=== PATIENT | female | born 1995 | race Caucasian/White ===

== ENCOUNTER 2020-04-07 07:31 | Inpatient (IN) ==
[2020-04-07] MEDS ORDERED: OXYTOCIN 30 UNITS/500 ML BAG IV PRN ×3 (08:11→23:17)
[2020-04-07 08:40] LABS: Hematocrit (blood only) 35.1 % (37-47); Hemoglobin 11.2 g/dL (12.0-16.0); Mean Corpuscular Hemoglobin 26.8 pg (25-34); Mean Platelet Volume 9.5 fL (7.4-10.4); Platelet Count 222 K/uL (130-400); RDW Standard Deviation 46.2 fL (36.4-46.3); Red Blood Count 4.18 M/uL (4.2-5.4); White Blood Count 10.44 K/uL (4.8-10.8)
[2020-04-07 08:43] LABS: Mean Corpuscular Hgb Conc 31.9 g/dL (32-36)
[2020-04-07] MEDS ORDERED: CALCIUM CARBONATE 500 MG CHEWABLE TAB ONE (09:13)
[2020-04-07] MEDS: LACTATED RINGER'S 1,000 ML IV PRN ×3 (09:22→20:54)
[2020-04-07] MEDS ORDERED: CALCIUM CARBONATE 500 MG CHEWABLE TAB PO PRN (09:29)
--- NOTE | 2020-04-07 09:44 | History & Physical Report ---
Date of Service April 07, 2020 Assessment & Plan (1) Encounter for induction of labor: Cervical balloon catheter to be placed by Dr. Brunson for cervical dilation and softening augmentation. Proceed with induction of labor per Pitocin augmentation protocol. Plan for unmedicated , but pt may also consider epidural. Will continue to monitor patient. Expect . (2) : see above History of Present Illness Primary Care Provider: Steven Gabriel Alfredo Priyanka Monte is a 24 y/o female currently at 41w1d EGA with an LALY 03/30/20 as determined by LMP who is here for IOL. Pt is planning for an unmedicated ; she reports that she did not have a good experience with the epidural during her first delivery (12/25/18) as it "didn't take" and that she would like to try the current delivery w/o epidural. However, she notes that she is not completely against the epidural if needed. Her was complicated by obesity and IUGR (monitored with US through but showed no longer IUGR on 01/14/20). Last BM this morning. - contractions; + movement; minimal blood tinged fluid loss after manual exam yesterday; no significant fluid loss; - bloody show Had regular appointments with OB. Blood type: O+ Antibody screen: neg H.7 (01/16/20) Hct: 35% (01/16/20) Rubella: immune (07/19/20) VDRL/RPR: nonreactive (07/19/20) Gonorrhea: not detected (07/19/20) Chlamydia: not detected (07/19/20) HIV: neg (07/19/20) HbSAg: neg (07/19/20) GBS: neg (03/03/20) panorama performed, low risk, male fetus Allergies Allergy/AdvReac Type Severity Reaction Status Date / Time No Known Allergies Allergy Verified 03/31/20 15:43 Home Medications Home Medications Medication Instructions Recorded Confirmed Type vit-iron fum-folic ac 1 tab PO DAILY 03/31/20 04/07/20 History [ Vitamin] Patient History Medical History Encounter for anatomic survey No pertinent past medical history Surgical History H/O hand surgery H/O ovarian cystectomy Family History Mother Mitral valve prolapse Asthma Miscarriage Father Hypertension Alcoholic Aunt Miscarriage Social History Smoking Status: Never smoker Second Hand Exposure: No; Do You Dip or Chew Tobacco: No; Tobacco Cessation Education Requested by Patient: No Hx Alcohol Use: No Hx Substance Use: No Preferred Language: Portuguese Beliefs That Will Affect Care: None marital status: Single marital status details: Justus Romano (24) [phone] Current Living Situation: Alone Current Living Situation Comment: Lives with 15 month old daughter current occupational status: employed current occupation: [employer] Other Information That Helps Us Care for You: No Feels Safe at Home: Yes Safety Concerns: Feels Safe At This Time Review of Systems Denies fever or chills. Denies shortness of breath, cough, or congestion. Denies chest pain. Positive heart burn, worsening. Denies breast pain. Denies constipation. Denies dysuria or hematuria. Denies leg pain or leg swelling. Denies headache or changes in vision. Physical Exam Physical Exam: General: Alert, oriented. No acute distress. Cardiac: Regular rate and rhythm, no murmurs/rubs/gallops. Respiratory: Clear to auscultation bilaterally a/p, no wheezes/rales/rhonchi. No increased work of breathing. Symmetrical chest rise. No respiratory distress. Abdomen: Gravid; full term. Pelvic: Dilation 2cm; Effacement 50; Station -[address] Brunson. Lower Extremities: No lower extremity edema or swelling. No deep calf pain. Danish's negative bilaterally Results & Data Vital Signs (Past 12 Hours) Vital Signs Temp Pulse Resp BP 04/07/20 08:02 36.5 C 85 20 119/66 04/07/20 07:39 85 119/66 Supervising Physician Co-Signing Physician Notes Resident Physician Supervision Note: I was present with Dr. Taylor during the history and exam. I discussed the case with the resident and agree with the findings and plan as documented in the note. Any exceptions or clarifications are listed here: Admit for IOL. Bone balloon placed without difficulty. Start pitocin. Documented By: Angela Brunson, DO
[2020-04-07] MEDS ORDERED: BUTORPHANOL TARTRATE 1 MG/ML VIAL IV PRN (13:37)
[2020-04-07] MEDS ORDERED: BUTORPHANOL TARTRATE 1 MG/ML VIAL ONE (13:48)
[2020-04-07] MEDS ORDERED: ePHEDrine sulfate 50 MG/ML AMP ONE (17:27)
[2020-04-07] MEDS ORDERED: fentaNYL citrate 100 MCG/2 ML VIAL ONE (17:27)
[2020-04-07] MEDS ORDERED: BUPIVACAINE 0.25% 30 ML VIAL ONE (17:27)
[2020-04-07] MEDS ORDERED: fentaNYL 2MCG/ML ROPIV 1.25MG/ML 100 ML BAG EPI ONE (17:28)
--- NOTE | 2020-04-07 17:42 | Anesthesiology Consultation ---
Date of Service April 07, 2020 Assessment & Plan Chart Review Chart Review: Acceptable Risk for Surgery, Patient NOT seen in Pre Admission Testing and Acceptable Risk for Labor Epidural Consults Requested none ASA ASA3 Proposed Anesthesia Anesthesia Type: Labor Epidural and CSE History Height/Weight Height: 5 ft 6 in Weight: 119.918 kg Allergies Allergy/AdvReac Type Severity Reaction Status Date / Time No Known Allergies Allergy Verified 03/31/20 15:43 Medications Home Medications Medication Instructions Recorded Confirmed Last Taken vit-iron fum-folic ac 1 tab PO DAILY 03/31/20 04/07/20 04/06/20 13:00 [ Vitamin] Active Medications Generic Name Dose Route Start Last Admin Trade Name Freq PRN Reason Stop Dose Admin Butorphanol Tartrate 1 mg 04/07/20 13:37 04/07/20 16:46 Stadol IV 05/07/20 13:36 1 mg Q2H PRN Administration Pain Lactated Ringer's 1,000 mls @ 125 mls/hr 04/07/20 08:11 04/07/20 16:48 Lr IV 04/09/20 08:10 125 mls/hr .Q8H PRN Administration L&D Protocol Protocol Oxytocin 30 units in 500 mls @ 7 mls/hr 04/07/20 08:16 04/07/20 15:24 Pitocin IV 04/09/20 08:15 0.42 units/hr .Q24H PRN 7 mls/hr Labor Induction/Augmentation Titration Protocol 0.42 UNITS/HR Past Medical History Medical History Encounter for anatomic survey No pertinent past medical history Exercise / Class Metabolic Activity II 4-5 Yardwork/Stairs/Walk up hill Past Family History Family History Mother Mitral valve prolapse Asthma Miscarriage Father Hypertension Alcoholic Aunt Miscarriage Past Surgical History Surgical History H/O hand surgery H/O ovarian cystectomy Past Anesthesia History No Hx of Anesthesia Complications and No Family Hx of Anesthesia Complications History of PONV No Hx of PONV and No Hx of Motion Sickness Social History Smoking Status: Never smoker Do You Dip or Chew Tobacco: No Hx Alcohol Use: No Hx Substance Use: No substance use type: does not use Physical Exam Vital Signs Last Vital Signs Temp 36.8 C 04/07/20 16:51 Pulse 65 04/07/20 17:36 Resp 20 04/07/20 16:51 BP 122/69 04/07/20 16:51 Pulse Ox 99 04/07/20 17:36 Testing Laboratory Results 04/07/20 08:27
[2020-04-07] MEDS ORDERED: PROMETHAZINE HCL 25 MG in SODIUM CHLORIDE 0.9% 50 ML IV PRN (18:21)
[2020-04-07] MEDS ORDERED: ePHEDrine sulfate 50 MG/ML AMP IV PRN (18:21)
[2020-04-07] MEDS ORDERED: ONDANSETRON INJ 2 MG/ML 2 ML VIAL IV PRN (18:21)
[2020-04-07] MEDS ORDERED: NALOXONE HCL 1 MG in SODIUM CHLORIDE 0.9% 1000ML 1,000 ML IV PRN (18:21)
[2020-04-07] MEDS ORDERED: fentaNYL 2MCG/ML ROPIV 1.25MG/ML 100 ML BAG EPI PRN (18:21)
[2020-04-07] MEDS ORDERED: DiphenhydrAMINE HCL 50 MG/ML VIAL IV PRN (18:21)
[2020-04-07] MEDS ORDERED: NALOXONE HCL 0.4 MG/1 ML VIAL/CARP IV PRN (18:21)
--- NOTE | 2020-04-07 21:29 | Labor Progress Brief Note ---
Date of Service April 07, 2020 Subjective AROM earlier this afternoon for scant clear fluid. Patient has been progressing with increasing contractions throughout the afternoon and evening. Now with epidural, comfortable. FHT Cat 1 Potter Q 2 SVE 8-9/100/-1. Moulding of head. Large anterior lip of cervix. Continue labor, anticipate . Assessment & Plan Admission and Anticipated Discharge Date Admission Date: April 07, 2020 Results & Data ([facility]) Vital Signs (Past 12 Hours) Vital Signs Temp Pulse Resp BP Pulse Ox 04/07/20 21:21 80 100 04/07/20 21:17 67 140/67 04/07/20 21:16 78 100 04/07/20 21:11 69 100 04/07/20 21:06 70 100 04/07/20 21:02 66 148/69 H 04/07/20 21:01 74 100 04/07/20 20:59 36.6 C 18 04/07/20 20:56 71 100 04/07/20 20:51 72 100 04/07/20 20:47 64 150/70 H 04/07/20 20:46 64 98 04/07/20 20:41 68 99 04/07/20 20:36 66 100 04/07/20 20:31 65 145/68 H 99 04/07/20 20:26 65 99 04/07/20 20:21 66 100 04/07/20 20:17 65 144/67 H 04/07/20 20:16 65 100 04/07/20 20:11 66 100 04/07/20 20:06 66 100 04/07/20 20:02 65 108/67 04/07/20 20:01 65 100 04/07/20 19:56 76 100 04/07/20 19:51 69 100 04/07/20 19:46 65 129/62 100 04/07/20 19:41 70 100 04/07/20 19:36 85 100 04/07/20 19:33 64 126/69 04/07/20 19:31 72 100 04/07/20 19:26 67 100 04/07/20 19:21 65 100 04/07/20 19:18 65 135/71 04/07/20 19:16 64 99 04/07/20 19:11 64 100 04/07/20 19:06 36.6 C 65 18 100 04/07/20 19:01 73 135/65 99 04/07/20 18:56 62 126/60 98 04/07/20 18:51 68 123/59 L 98 04/07/20 18:46 65 98 04/07/20 18:45 63 124/63 04/07/20 18:41 66 122/59 L 98 04/07/20 18:37 63 114/56 L 04/07/20 18:36 64 99 04/07/20 18:31 66 99 04/07/20 18:29 79 107/50 L 04/07/20 18:26 90 98 04/07/20 18:25 71 104/55 L 04/07/20 18:23 87 98/56 L 04/07/20 18:21 100 H 99/53 L 100 04/07/20 18:19 88 108/55 L 04/07/20 18:17 86 130/60 04/07/20 18:16 91 H 97 04/07/20 18:11 77 100 04/07/20 18:06 77 100 04/07/20 18:01 77 100 04/07/20 17:56 73 100 04/07/20 17:52 64 137/75 04/07/20 17:51 67 100 04/07/20 17:46 60 100 04/07/20 17:41 59 L 100 04/07/20 17:40 67 93 04/07/20 17:36 65 99 04/07/20 16:51 36.8 C 71 20 122/69 04/07/20 16:20 60 143/71 H 04/07/20 15:15 36.6 C 60 16 132/79 04/07/20 15:09 68 136/82 04/07/20 14:14 69 128/76 04/07/20 14:05 37.1 C 20 04/07/20 14:04 66 128/74 04/07/20 11:15 63 130/71 04/07/20 10:56 72 121/59 L 04/07/20 10:43 68 129/72 04/07/20 10:27 72 16 127/73 04/07/20 10:11 70 20 121/78 04/07/20 09:57 65 20 128/78 04/07/20 09:42 72 125/70 Coding Level of Care Code None
[2020-04-07] MEDS ORDERED: ACETAMINOPHEN 325 MG TAB ONE (23:15)
[2020-04-07] MEDS ORDERED: HYDROCORTISONE ACETATE 25 MG SUPP PR PRN (23:17)
[2020-04-07] MEDS ORDERED: BENZOCAINE 20% AER SPR 82.5 GM CAN EXT PRN (23:17)
[2020-04-07] MEDS ORDERED: SUPERCREAM 0.870% 15 GM JAR EXT PRN (23:17)
[2020-04-07] MEDS ORDERED: bisacodyL 10 MG SUPP PR PRN (23:17)
[2020-04-07] MEDS ORDERED: DIPHTHERIA/TETANUS/PERTUSSIS 0.5 ML SYR/VIAL IM ONE (23:17)
[2020-04-07] MEDS ORDERED: OXYCODONE/ACETAMINOPHEN 5mg/325mg TAB PO PRN (23:17)
[2020-04-07] MEDS ORDERED: ACETAMINOPHEN 325 MG TAB PO PRN (23:17)
--- NOTE | 2020-04-07 23:17 | Delivery Summary ---
Vaginal Delivery Summary Date of Service April 07, 2020 Vaginal Delivery Summary Vaginal Delivery Summary: Pre-delivery diagnoses: 24yo @ 41 09/03, IOL for postdates, obesity, mild pyelectasis Post-delivery diagnoses: same, left vaginal pedunculated inclusion cyst 1x2cm Procedure: spontaneous vaginal delivery Surgeon: Angela Brunson DO Complications: none Findings: Viable male . Apgars: 8/9. Weight pending, please see nursery records. Estimated blood loss: 300ml Description of delivery: The patient progressed to complete with epidural anesthesia. She then began to push. She spontaneously vaginally delivered a viable from the cephalic presentation. The head delivered in ANNMARIE position. Nuchal cord x 1, easily reduced. The anterior shoulder delivered, followed by the posterior shoulder, followed by the body. The baby was placed on mother's abdomen and the cord was immediately doubly clamped and cut. Baby handed off to nursery team for resuscitation. A segment was retained for cord gases. Cord blood was obtained. The placenta was delivered spontaneously intact with a 3-vessel cord. The uterus and vagina were swept of clots and debris. IV pitocin was given. The uterus became firm. The cervix, vagina, and perineum were inspected and no lacerations were noted. Excellent hemostasis was observed. There was a new finding (visualized on first exam today prior to delivery) of a 1 x 2cm pedunculated inclusion cyst on the left vaginal wall, approx 3cm from introitus. I offered removal after delivery, patient declined, as it does not bother her. The mother and baby are recovering in stable and good condition in the room. Sponge and instrument counts were correct x 2. Angela Brunson DO [facility] [place] Vaginal Delivery Charge Vaginal Delivery Codes: 27170 global code for the antepartum, delivery, and post-
--- NOTE | 2020-04-07 23:28 | Anesthesia Procedure Note ---
Date of Service April 07, 2020 Anesthesia Post Epidural Note Vital Signs Vital Signs: Temp Pulse Resp BP Pulse Ox 37.5 C 90 18 116/59 L 99 04/07/20 22:41 04/07/20 23:16 04/07/20 22:41 04/07/20 23:16 04/07/20 23:16 Notes Mental Status: alert / awake / arousable Nausea / Vomiting: adequately controlled Pain: adequately controlled Airway Patency, RR, SpO2: stable & adequate BP & HR: stable & adequate Hydration State: stable & adequate Neuraxial Anesthesia: was administered and sensory block is resolving Anesthetic Complications: no major complications apparent Epidural: Removed without complications and With tip intact
[2020-04-07 23:40] LABS: Base Excess Cord Arterial Bld -2.7 mEq/L (-9-1.8); CO2 Cord Arterial Blood 55 mmHg (39.1-73.5); HCO3 Cord Arterial Blood 25 mmol/L (19.7-28.5); PO2 Cord Arterial Blood 18 mmHg (4.1-31.7); pH Cord Arterial Blood 7.27 (7.1-7.38)
[2020-04-07 23:41] LABS: Oxygen Sat Cord Arterial Blood < 60.0 % (<60)
--- NOTE | 2020-04-08 06:30 | Obstetrical Progress Note ---
Date of Service <Dayna Taylor DO - Last Filed: 04/08/20 07:44> April 08, 2020 Assessment & Plan <DO Carrillo Krishnan Last Filed: 04/08/20 07:44> (1) normal course: - Feels well today. Eating well, voiding well, ambulating well. - Pt with no plan or desire to breastfeed. Continue bottle feeding. - Continue pain control with ibuprofen 600mg Q4H PRN - Routine care -- OOB, ambulation, diet progression as tolerated - After discharge will have 6 week follow-up with Dr. Brunson. - h/h 10.3/30.8 this morning. Will plan to start supplemental iron. - Will plan for d/c home tomorrow. Subjective <Dayna Taylor DO - Last Filed: 04/08/20 07:44> Priyanka Monte is a 24 y/o female who is PPD #1 following IOL with epidural supported at 41 1. She reports feeling well overall this morning. No abdominal cramping & 0/10 pain. Voiding w/o difficulty. Tolerated turkey sandwich after delivery and able to ambulate some. No n/v. No passing gas and no bowel movement. Has some persistent lochia with some improvement this morning. Currently bottle feeding. Review of Systems Denies fever, chills, sweats Denies shortness of breath, difficulty breathing, chest pain, palpitations, chest pressure. Denies breast pain. Denies dysuria. Denies headache or changes in vision. Physical Exam <Dayna Taylor DO - Last Filed: 04/08/20 07:44> General: Alert, oriented. No acute distress. Cardiac: Regular rate and rhythm. No murmurs. Respiratory: Clear to auscultation bilaterally a/p, no wheezes/rales/rhonchi. No increased work of breathing. Symmetrical chest rise. No respiratory distress. Abdomen: Soft, nontender, nondistended. Bowel sounds present. Uterus: Uterine fundus firm, palpable at umbilicus. Lower Extremities: No lower extremity edema or swelling. No deep calf pain. Danish's negative bilaterally. Results & Data ([facility]) <Dayna Taylor DO - Last Filed: 04/08/20 07:44> Vital Signs (Past 12 Hours) Vital Signs Temp Pulse Pulse Resp BP BP Pulse Ox 04/08/20 03:45 36.8 C 80 18 130/78 04/08/20 01:40 37.2 C 113 H 18 131/66 04/08/20 01:31 113 H 131/66 04/08/20 01:16 71 130/70 04/08/20 01:15 37.2 C 18 04/08/20 01:01 87 128/66 04/08/20 00:46 78 144/85 H 04/08/20 00:45 18 04/08/20 00:31 71 124/62 04/08/20 00:16 82 133/77 04/08/20 00:15 18 04/08/20 00:01 77 129/63 04/08/20 00:00 18 04/07/20 23:46 74 133/68 04/07/20 23:45 18 04/07/20 23:31 83 154/79 H 04/07/20 23:30 18 04/07/20 23:16 90 116/59 L 99 04/07/20 23:15 18 04/07/20 23:11 80 99 04/07/20 23:09 82 152/70 H 04/07/20 23:07 89 144/72 H 04/07/20 23:06 85 100 04/07/20 23:01 93 H 100 04/07/20 22:56 79 100 04/07/20 22:51 107 H 100 04/07/20 22:46 93 H 157/73 H 100 04/07/20 22:41 37.5 C 69 18 100 04/07/20 22:36 89 100 04/07/20 22:32 71 130/73 04/07/20 22:31 67 100 04/07/20 22:28 18 04/07/20 22:26 70 100 04/07/20 22:21 66 100 04/07/20 22:17 67 133/64 04/07/20 22:16 68 100 04/07/20 22:11 66 100 04/07/20 22:06 70 99 04/07/20 22:01 68 139/60 100 04/07/20 21:56 66 100 04/07/20 21:51 65 100 04/07/20 21:46 66 134/65 100 04/07/20 21:41 65 100 04/07/20 21:36 65 100 04/07/20 21:31 70 18 113/55 L 100 04/07/20 21:26 80 100 04/07/20 21:21 80 100 04/07/20 21:17 67 140/67 04/07/20 21:16 78 100 04/07/20 21:11 69 100 04/07/20 21:06 70 100 04/07/20 21:02 66 148/69 H 04/07/20 21:01 74 100 04/07/20 20:59 36.6 C 18 04/07/20 20:56 71 100 04/07/20 20:51 72 100 04/07/20 20:47 64 150/70 H 04/07/20 20:46 64 98 04/07/20 20:41 68 99 04/07/20 20:36 66 100 04/07/20 20:31 65 145/68 H 99 04/07/20 20:26 65 99 04/07/20 20:21 66 100 04/07/20 20:17 65 144/67 H 04/07/20 20:16 65 100 04/07/20 20:11 66 100 04/07/20 20:06 66 100 04/07/20 20:02 65 108/67 04/07/20 20:01 65 100 04/07/20 19:56 76 100 04/07/20 19:51 69 100 04/07/20 19:46 65 129/62 100 04/07/20 19:41 70 100 04/07/20 19:36 85 100 04/07/20 19:33 64 126/69 04/07/20 19:31 72 100 04/07/20 19:26 67 100 04/07/20 19:21 65 100 04/07/20 19:18 65 135/71 04/07/20 19:16 64 99 04/07/20 19:11 64 100 04/07/20 19:06 36.6 C 65 18 100 04/07/20 19:01 73 135/65 99 04/07/20 18:56 62 126/60 98 04/07/20 18:51 68 123/59 L 98 04/07/20 18:46 65 98 08/11/20 18:45 63 124/63 04/07/20 18:41 66 122/59 L 98 04/07/20 18:37 63 114/56 L 04/07/20 18:36 64 99 04/07/20 18:31 66 99 04/07/20 18:29 79 107/50 L <Angela Brunson, - Last Filed: 04/08/20 07:55> Co-Signing Physician Notes Resident Physician Supervision Note: I was present with Dr. Taylor during the history and exam. I discussed the case with the resident and agree with the findings and plan as documented in the no te. Any exceptions or clarifications are listed here: PPD#1 doing well. Anticipate DC home tomorrow. Documented By: Angela Brunson DO
[2020-04-08 07:15] LABS: Hematocrit (blood only) 30.8 % (37-47); Hemoglobin 10.3 g/dL (12.0-16.0)
[2020-04-08] MEDS: DOCUSATE SODIUM 100 MG CAP PO SCH ×2 (08:07→21:21)
[2020-04-08] MEDS: PRENATAL VITAMIN 1 TAB PO SCH (08:07)
[2020-04-08] MEDS: IBUPROFEN 600 MG TAB PO PRN ×3 (08:07→20:06)
[2020-04-08] MEDS ORDERED: FERROUS SULFATE 325 MG/7.4 ML UDP PO SCH (09:00)
[2020-04-08] MEDS ORDERED: bisacodyL 5 MG TABEC PO SCH (20:00)
--- NOTE | 2020-04-09 06:14 | Obstetrical Progress Note ---
Date of Service <Dayna Taylor DO - Last Filed: 04/09/20 07:49> April 09, 2020 Assessment & Plan <Dayna Taylor DO - Last Filed: 04/09/20 07:49> (1) normal course: - Hx: GBS neg, rubella immune, Rh+ - Patient doing well this morning. - Eating well, voiding well, ambulating well. - Encouraged patient to have BM with the urge and to not hold it in. - Pain well controlled with ibuprofen 600mg Q4H PRN - Routine VD care care -- OOB, ambulation, diet progression as tolerated - After discharge will have 6 week follow-up with Dr. Brunson. - Plan for d/c home today. Subjective <Dayna Taylor DO - Last Filed: 04/09/20 07:49> Priyanka Monte is a 24 y/o female who is PPD #2 following IOL and with epidural at 41 1/7 weeks. She reports feeling well overall this morning. Minimal abdominal cramping & 0/10 pain being well managed on analgesics. Voiding without difficulty. Tolerating meals overnight and able to ambulate some. + passing gas but no bowel movement yet. Patient states that she has been taking the stool softeners and she feels the urge to have a bowel movement but she's "worried it's going to be a big one." Has some persistent lochia with improvement this morning. Currently bottle feeding. Review of Systems Denies fever or chills. Denies shortness of breath or cough. Denies chest pain. Denies breast pain. Denies dysuria. Denies leg pain or leg swelling. Denies headache or changes in vision. Physical Exam <Dayna Taylor DO - Last Filed: 04/09/20 07:49> General: Alert, oriented. No acute distress. Cardiac: Regular rate and rhythm. No murmurs. Respiratory: Clear to auscultation bilaterally a/p, no wheezes/rales/rhonchi. No increased work of breathing. Symmetrical chest rise. No respiratory distress. Abdomen: Soft, nontender, nondistended. Bowel sounds present. Uterus: Uterine fundus firm, palpable 2 cm below umbilicus. Lower Extremities: No lower extremity edema or swelling. No deep calf pain. Danish's negative bilaterally. Results & Data ([facility]) <Dayna Taylor DO - Last Filed: 04/09/20 07:49> Vital Signs (Past 12 Hours) Vital Signs Temp Pulse Resp BP Pulse Ox 04/08/20 23:15 36.7 C 67 18 112/69 99 04/08/20 19:55 36.6 C 78 18 120/75 99 <Avril Zimmerman MD, FACOG - Last Filed: 04/09/20 07:55> Co-Signing Physician Notes Resident Physician Supervision Note: I interviewed and examined the patient. Discussed with Dr. Taylor and agree with findings and plan as documented in the note. Any exceptions or clarifications are listed here: Doing well. Plan d/c today. f/u 6 weeks. Instructions given. Documented By: Avril Zimmerman MD, FACOG
[2020-04-09] MEDS: PRENATAL VITAMIN 1 TAB PO SCH (08:16)
[2020-04-09] MEDS: DOCUSATE SODIUM 100 MG CAP PO SCH (08:16)
[2020-04-09] MEDS: IBUPROFEN 600 MG TAB PO PRN ×2 (08:16→12:45)
== END 2020-04-09 15:00 | disposition home or self-care (01) | DRG 807 ==
LOC: 4S1 07:31 → 4S2 04-08 01:36